=== PATIENT | female | born 1985 | race African-American/Black ===

== ENCOUNTER 2016-06-06 10:32 | Emergency (ER) | payer OTHER | END 2016-06-06 12:05 | disposition home or self-care (01) | LOC: FASTR 10:32 | DX: S29.011A Strain of muscle and tendon of front wall of thorax, initial encounter (principal); S39.012A Strain of muscle, fascia and tendon of lower back, initial encounter; S29.012A Strain of muscle and tendon of back wall of thorax, initial encounter; X50.0XXA Overexertion from strenuous movement or load, initial encounter; Y92.59 Other trade areas as the place of occurrence of the external cause | CPT/HCPCS: 72072; 72100 ==